=== PATIENT | female | born 1970 | race Caucasian/White ===

== ENCOUNTER 2016-11-27 17:41 | Emergency (ER) | payer OTHER, SELFPAY ==
[2016-11-27] MEDS ORDERED: Sodium Chloride 0.9% 1,000 ML ONE ×2 (18:01→18:58)
[2016-11-27] MEDS ORDERED: Acetaminophen 500 MG TAB ONE (18:02)
[2016-11-27] MEDS ORDERED: Ondansetron HCl/PF 4 MG/2 ML Vial ONE (18:02)
[2016-11-27 18:19] LABS: #Eosinphils 0.1 thou/uL (0.0-0.7); #Lymphocytes 0.8 thou/uL (1.20-3.40); #Neutrophils 10.6 thou/uL (1.40-6.50); %Basophils 0.4 % (0.0-1.0); %Eosinophils 0.4 % (0.0-10.0); %Lymphocytes 6.7 % (21.0-51.0); %Monocytes 0.4 % (0.0-10.0); %Neutrophils 92.1 % (42.0-75.0); Hemoglobin 15.2 g/dL (12.0-16.0); Mean Corpuscular HGB CONC 32.8 g/dL (32.0-36.0); Mean Corpuscular Hemoglobin 28.2 pg (27.0-31.0); Mean Corpuscular Volume 85.8 fl (81.0-99.0); Mean Platelet Volume 9.3 fL (7.4-10.4); Platelet Count 214 thou/uL (130-400); RBC Distribution Width 11.8 % (11.5-14.5); Red Blood Cell (RBC) Count 5.38 mill/uL (4.20-5.40); White Blood Cell (WBC) Count 11.5 thou/uL (4.8-10.8)
[2016-11-27 18:25] LABS: Bilirubin Negative (Negative); Blood, Urine Large (Negative); Clarity Cloudy (Clear); Glucose, Urine (Dipstick) 500 mg/dL (Negative); Leukocyte Small (Negative); Nitrite Positive (Negative); Protein, Urine (Dipstick) 30 mg/dL (Neg-Trace); Specific Gravity, Urine 1.015 (1.005-1.030); Urobilinogen 0.2 mg/dL (0.2-1.0); pH, Urine 6.5 (5.0-9.0)
[2016-11-27 18:33] LABS: Amphetamine Not Detected (NotDetected); Barbiturates Screen Not Detected (NotDetected); Benzodiazepine Screen Not Detected (NotDetected); Cocaine Metabolite Screen Not Detected (NotDetected); Methadone Not Detected (NotDetected); Methamphetamine Not Detected (NotDetected); Opiate Screen Not Detected (NotDetected); Oxycodone Screen Not Detected (NotDetected); Phencyclidine (PCP) Not Detected (NotDetected); THC/Cannabinoid Screen Not Detected (NotDetected); Tricyclic Screen Not Detected (NotDetected)
[2016-11-27 18:34] LABS: Medtox Control Line Valid? VALID (VALID)
[2016-11-27 18:40] LABS: ALT (SGPT) 15 U/L (8-55); AST (SGOT) 10 U/L (5-34); Albumin 4.3 g/dL (3.5-5.0); Alkaline Phosphatase 109 U/L (40-150); Anion Gap 18 mmol/L (10-20); BUN (Urea Nitrogen) 15 mg/dL (7.0-18.7); Bilirubin, Total 0.7 mg/dL (0.2-1.2); Calc. Creatinine Clearance 0 mL/min (70-130); Calcium 9.9 mg/dL (7.8-10.44); Carbon Dioxide 19 mmol/L (22-29); Chloride 100 mmol/L (98-107); Estimated GFR-MDRD 60; Globulin 3.2 g/dL (2.4-3.5); Glucose 436 mg/dL (70-105); Lipase 15 U/L (8-78); Protein, Total 7.5 g/dL (6.0-8.3); Sodium 133 mmol/L (136-145)
[2016-11-27 18:41] LABS: Bacteria/HPF Rare-Few HPF (None Seen); RBC/HPF 0-3 HPF (0-3); Squamous Epithelial 0-3 HPF (0-3)
--- NOTE | 2016-11-27 18:51 | CT ---
CT OF ABDOMEN AND PELVIS 11/27/16 COMPARISON: 05/11/15 HISTORY: Right sided flank pain and back pain. TECHNIQUE: Serial axial CT imaging at 5 mm intervals from lung bases through pubic symphysis without contrast. Coronal reformatted imaging obtained. FINDINGS: Lack of contrast limits assessment of the viscera, bowel, vascular structures and for lymphadenopath y. The imaged lung bases demonstrate no acute findings. No free intraperitoneal air is noted. There is a small fat containing umbilical hernia present. The liver, gallbladder, spleen, pancreas, and adrenal glands are unremarkable. A punctate nonobstructing stone is noted within the lower pole of the left kidney. There is no evide nce for obstructive uropathy on the left. There is perinephric stranding and hydronephrosis on the right with associated nephromegaly, new. Th e ureter on the right is dilated and there is periureteral fat stranding. On axial image 85, there i s a linear calcification at the level of the right ureterovesicular junction which measures 6-7 mm i n length, evidence of a distal obstructing stone. This stone measures approximately 2 mm in AP dimen steven. Limited assessment of the bowel demonstrates no evidence for inflammatory change or obstruction. Osseous structures demonstrate no acute findings. IMPRESSION: Evidence of obstructive uropathy on the right secondary to a stone within the distal right ureter at the level of the right ureterovesicular junction as detailed above. POS: [facility]
[2016-11-27] MEDS ORDERED: Ketorolac Tromethamine 30 MG/ML VIAL ONE (18:56)
[2016-11-27] MEDS ORDERED: Insulin Regular 300 UNITS/3 ML VIAL ONE (18:56)
[2016-11-27] MEDS ORDERED: Ciprofloxacin 500 MG TAB ONE (18:58)
[2016-11-27] MEDS ORDERED: Potassium Chloride 20 MEQ TAB ONE (18:58)
== END 2016-11-27 20:00 | disposition home or self-care (01) ==
LOC: NAV ERS 17:41
DX: N20.0 Calculus of kidney (principal); N39.0 Urinary tract infection, site not specified; E11.65 Type 2 diabetes mellitus with hyperglycemia; I10 Essential (primary) hypertension
CPT/HCPCS: 36415; 36416; 51701; 74176; 80053; 80306; 81003; 81015; 83690; 85025; 96361; 96374; 96375; A4353; J1815; J1885; J2270; J2405; J7050

== ENCOUNTER 2017-10-04 21:24 | Emergency (ER) | payer SELFPAY ==
[2017-10-04] MEDS ORDERED: Lidocaine 1% 20 ML MDV ONE (21:32)
[2017-10-04] MEDS ORDERED: Adacel (T-DAP) 0.5 ML VIAL ONE (21:57)
[2017-10-04] MEDS ORDERED: Sulfameth/Trimethoprim DS 800-160mg TAB ONE (22:10)
[2017-10-04] MEDS ORDERED: Amoxicillin/Potassium Clav 875 MG TAB ONE (22:10)
== END 2017-10-04 22:39 | disposition home or self-care (01) ==
LOC: NAV ERS 21:24
DX: L02.211 Cutaneous abscess of abdominal wall (principal); E11.9 Type 2 diabetes mellitus without complications; I10 Essential (primary) hypertension; Z79.899 Other long term (current) drug therapy
CPT/HCPCS: 10060; 36416; 90471; 90715; J2001

== ENCOUNTER 2017-10-05 16:52 | Emergency (ER) | payer SELFPAY | END 2017-10-05 17:17 | disposition home or self-care (01) | LOC: NAV ERS 16:52 | DX: Z48.817 Encounter for surgical aftercare following surgery on the skin and subcutaneous tissue (principal); I10 Essential (primary) hypertension; E11.9 Type 2 diabetes mellitus without complications; Z79.899 Other long term (current) drug therapy | CPT/HCPCS: 99282 ==

== ENCOUNTER 2017-12-10 15:31 | Emergency (ER) | payer SELFPAY ==
[2017-12-10] MEDS ORDERED: Ketorolac Tromethamine 60 MG/2 ML VIAL ONE (16:24)
[2017-12-10] MEDS ORDERED: Orphenadrine Citrate 60 MG/2 ML VIAL ONE (16:24)
--- NOTE | 2017-12-10 16:54 | CT ---
CT CERVICAL SPINE NONCONTRAST: 12/10/17 HISTORY: Neck injury. FINDINGS: Vertebral body heights and alignment are maintained. Cervicothoracic junction intact. No acute fractu re or dislocation. IMPRESSION: No acute osseous abnormalities are demonstrated. POS: [facility]
== END 2017-12-10 16:50 | disposition home or self-care (01) ==
LOC: NAV ERS 15:31
DX: M54.2 Cervicalgia (principal); I10 Essential (primary) hypertension; E11.9 Type 2 diabetes mellitus without complications; Z79.899 Other long term (current) drug therapy
CPT/HCPCS: 72125; 96372; J1885; J2360

== ENCOUNTER 2018-02-12 18:02 | Emergency (ER) | payer SELFPAY, OTHER ==
[~2018-02-12 18:02] MED LIST: Iopamidol 370 76% 100 ML VIAL ONE
[2018-02-12] MEDS ORDERED: Ibuprofen 200 MG TAB ONE (18:20)
[2018-02-12] MEDS ORDERED: Ondansetron HCl/PF 4 MG/2 ML Vial ONE (18:41)
[2018-02-12] MEDS ORDERED: Sodium Chloride 0.9% 1,000 ML ONE (18:41)
[2018-02-12 19:22] LABS: ALT (SGPT) 43 U/L (8-55); AST (SGOT) 28 U/L (5-34); Albumin 3.8 g/dL (3.5-5.0); Alkaline Phosphatase 99 U/L (40-150); Anion Gap 18 mmol/L (10-20); BUN (Urea Nitrogen) 9 mg/dL (7.0-18.7); Bilirubin, Total 0.5 mg/dL (0.2-1.2); Calc. Creatinine Clearance 0 mL/min (70-130); Calcium 9.4 mg/dL (7.8-10.44); Carbon Dioxide 16 mmol/L (22-29); Chloride 98 mmol/L (98-107); Estimated GFR-MDRD 65; Globulin 2.6 g/dL (2.4-3.5); Glucose 492 mg/dL (70-105); Potassium 3.9 mmol/L (3.5-5.1); Protein, Total 6.4 g/dL (6.0-8.3); Sodium 128 mmol/L (136-145)
[2018-02-12 19:23] LABS: CRP (Inflammatory) 4.91 mg/dL (= or < 0.5)
[2018-02-12 19:24] LABS: CKMB 0.1 ng/mL (0-6.6); Troponin I Less than 0.010 ng/mL (< 0.028)
[2018-02-12 19:36] LABS: Band 7 % (5-11); Hemoglobin 14.7 g/dL (12.0-16.0); Lymphocytes 21 % (21-51); MDiff Complete? YES; Mean Corpuscular HGB CONC 32.9 g/dL (32.0-36.0); Mean Corpuscular Hemoglobin 28.9 pg (27.0-31.0); Mean Corpuscular Volume 87.8 fL (78.0-98.0); Monocytes 6 % (0-10); Neutrophil 66 % (42-75); Platelet Count 171 thou/uL (130-400); RBC Distribution Width 11.4 % (11.5-14.5); Red Blood Cell (RBC) Count 5.09 mill/uL (4.20-5.40); White Blood Cell (WBC) Count 5.9 thou/uL (4.8-10.8)
[2018-02-12] MEDS ORDERED: Insulin Regular 300 UNITS/3 ML VIAL ONE (19:57)
--- NOTE | 2018-02-12 21:40 | CT ---
CT OF LUMBAR SPINE PERFORMED WITHOUT CONTRAST ENHANCEMENT: 02/12/18 HISTORY: Back pain and numbness in feet. The vertebral bodies are normal in height. Disc spaces are all well preserved. No significant periaor tic adenopathy. The visualized portions of the kidneys are unremarkable. Review of the disc levels shows no signs for any canal or foraminal stenosis. No pars defects. IMPRESSION: Unremarkable CT of the lumbar spine. POS: [facility]
--- NOTE | 2018-02-12 21:47 | CT ---
CT OF CERVICAL SPINE PERFORMED WITHOUT CONTRAST ENHANCEMENT: 02/12/18 HISTORY: Neck pain. The vertebral bodies are normal in height. Disc spaces are all fairly well preserved. The facets are in normal alignment with some minimal arthritic change. There is no evidence of canal or foraminal st enosis. There is no CT evidence for fracture. IMPRESSION: 1. No CT evidence of fracture of the cervical spine. 2. Incidental note is made of a calcified nodule in the right lobe of the thyroid. POS: [facility]
--- NOTE | 2018-02-12 22:34 | CT ---
CT ANGIO OF CHEST PERFORMED WITH INTRAVENOUS CONTRAST ENHANCEMENT WITH 3D RECONSTRUCTIONS: 02/12/18 HISTORY: Shortness of breath, chest pain. There is subsegmental atelectatic changes in the lung bases. No infi ltrative process. The thoracic aorta is normal in caliber. No mediastinal or hilar adenopathy noted. There is fairly good pulmonary artery opacification, there is no CT evidence for pulmonary embolus. The visualized liver parenchyma shows no focal abnormalities. The spleen is slightly enlarged at 13 c m. IMPRESSION: No CT evidence for pulmonary embolus. Suggestion of some mild splenomegaly. POS: [facility]
== END 2018-02-12 23:28 | disposition home or self-care (01) ==
LOC: NAV ERS 18:02
DX: E11.65 Type 2 diabetes mellitus with hyperglycemia (principal); B34.9 Viral infection, unspecified; E86.9 Volume depletion, unspecified; I10 Essential (primary) hypertension
CPT/HCPCS: 36416; 71275; 72125; 72131; 80053; 82553; 83605; 84484; 85025; 85379; 86140; 87081; 87430; 87804; 93005; 96374; 96375; 96376; J1815; J2270; J2405; J7050

== ENCOUNTER 2018-08-09 13:45 | Outpatient (CLI) | payer OTHER, SELFPAY ==
--- NOTE | 2018-08-09 14:36 | RAD ---
LUMBAR SPINE 3 VIEWS: HISTORY: Back pain, disability evaluation. COMPARISON: 11/21/2015. FINDINGS: The disk spaces appear adequately preserved. There is some very mild facet arthrosis. No fracture o r dislocation or malalignment. IMPRESSION: Mild lumbar spondylosis. No significant acute process. Stable from prior study. POS: OFF
== END 2018-08-09 13:46 | disposition home or self-care (01) ==
LOC: NAV RAD 13:45
PROVIDERS: ATTEND Family Medicine
DX: Z02.71 Encounter for disability determination (principal); M54.5 Low back pain; M47.816 Spondylosis without myelopathy or radiculopathy, lumbar region
CPT/HCPCS: 72100

== ENCOUNTER 2018-08-09 13:59 | Outpatient (CLI) | payer OTHER ==
--- NOTE | 2018-08-09 14:18 | RAD ---
XR Ankle Rt 3 View STANDARD History: [Injury. Jumped out of a window.] Comparison: None. Findings: No acute fracture or malalignment. Soft tissues are unremarkable. Impression: No acute abnormality.
--- NOTE | 2018-08-09 14:41 | RAD ---
RIGHT TIBIA AND FIBULA 2 VIEWS: HISTORY: Right leg pain following an injury after jumping out a window. FINDINGS AND IMPRESSION: No fracture, dislocation, or other significant acute osseous abnormality. POS: OFF
== END 2018-08-09 14:00 | disposition home or self-care (01) ==
LOC: NAV RAD 13:59
PROVIDERS: ATTEND Family Medicine
DX: M25.571 Pain in right ankle and joints of right foot (principal); M79.604 Pain in right leg

== ENCOUNTER 2019-03-19 16:46 | Emergency (ER) | payer OTHER, SELFPAY ==
[2019-03-19] MEDS ORDERED: Ketorolac Tromethamine 60 MG/2 ML VIAL ONE (17:27)
[2019-03-19] MEDS ORDERED: Amlodipine 5 MG TAB ONE (17:29)
== END 2019-03-19 17:48 | disposition home or self-care (01) ==
LOC: NAV ERS 16:46
DX: M54.41 Lumbago with sciatica, right side (principal); M54.42 Lumbago with sciatica, left side; I10 Essential (primary) hypertension; E11.9 Type 2 diabetes mellitus without complications
CPT/HCPCS: 96372; 99283; J1885

== ENCOUNTER 2022-03-12 15:41 | Emergency (ER) | payer OTHER ==
[2022-03-12] MEDS ORDERED: Aspirin Chewable 81 MG TAB ONE (16:22)
[2022-03-12] MEDS ORDERED: Nitroglycerin 0.4 MG TAB (25 Tab Bottle) ONE (16:30)
[2022-03-12 16:38] LABS: #Basophils 0.1 thou/uL (0.0-0.2); #Eosinphils 0.1 thou/uL (0.0-0.7); #Lymphocytes 2.3 thou/uL (1.20-3.40); #Monocytes 0.4 thou/uL (0.11-0.59); #Neutrophils 3.4 thou/uL (1.40-6.50); %Eosinophils 1.7 % (0.0-10.0); %Monocytes 6.7 % (0.0-10.0); %Neutrophils 54.6 % (42.0-75.0); Hemoglobin 14.9 g/dL (12.0-16.0); Mean Corpuscular Hemoglobin 29.4 pg (27.0-31.0); Mean Corpuscular Volume 92.1 fl (78.0-98.0); Mean Platelet Volume 9.3 fL (7.4-10.4); Platelet Count 203 10x3/uL (130-400); RBC Distribution Width 12.8 % (11.5-14.5); Red Blood Cell (RBC) Count 5.07 mill/uL (4.20-5.40); White Blood Cell (WBC) Count 6.3 10x3/uL (4.8-10.8)
[2022-03-12] MEDS ORDERED: Acetaminophen 500 MG TAB ONE (16:50)
[2022-03-12 16:55] LABS: ALT (SGPT) 111 U/L (8-55); AST (SGOT) 30 U/L (5-34); Albumin 4.1 g/dL (3.5-5.0); Alkaline Phosphatase 116 U/L (40-110); Anion Gap 15 mmol/L (10-20); BUN (Urea Nitrogen) 22 mg/dL (7.0-18.7); Bilirubin, Total 0.2 mg/dL (0.2-1.2); Calc. Creatinine Clearance 0 mL/min (70-130); Carbon Dioxide 25 mmol/L (22-29); Chloride 107 mmol/L (98-107); Estimated GFR 71; Glucose 121 mg/dL (70-105); Potassium 3.9 mmol/L (3.5-5.1); Protein, Total 7.1 g/dL (6.0-8.3); Sodium 143 mmol/L (136-145)
[2022-03-12] MEDS ORDERED: Morphine 4 MG/ML VIAL ONE (17:30)
[2022-03-12] MEDS ORDERED: Ondansetron PF 4 MG/2 ML Vial ONE ×2 (17:30→19:01)
[2022-03-12 19:36] LABS: Troponin I Less than 0.010 ng/mL (< 0.028)
[2022-03-12 20:04] LABS: SARS-CoV-2 NAA Rapid Test DETECTED (NotDetected)
== END 2022-03-12 20:38 | disposition short-term general hospital (02) ==
LOC: NAV ERS 15:41
DX: S90.01XA Contusion of right ankle, initial encounter (principal); J98.11 Atelectasis; R93.1 Abnormal findings on diagnostic imaging of heart and coronary circulation; I10 Essential (primary) hypertension; E11.9 Type 2 diabetes mellitus without complications; Z20.822 Contact with and (suspected) exposure to COVID-19; I25.10 Atherosclerotic heart disease of native coronary artery without angina pectoris; Z79.899 Other long term (current) drug therapy; Z79.82 Long term (current) use of aspirin; Z79.4 Long term (current) use of insulin; W22.8XXA Striking against or struck by other objects, initial encounter
CPT/HCPCS: 71045; 80053; 84484; 85025; 85379; 87804; 93005; 94760; 96374; 96375; 96376; J2270; J2405; U0002

== ENCOUNTER 2022-04-17 18:42 | Emergency (ER) | payer OTHER ==
[2022-04-17 19:32] LABS: #Basophils 0.1 thou/uL (0.0-0.2); #Eosinphils 0.2 thou/uL (0.0-0.7); #Lymphocytes 2.5 thou/uL (1.20-3.40); #Monocytes 0.4 thou/uL (0.11-0.59); #Neutrophils 4.7 thou/uL (1.40-6.50); %Basophils 1.4 % (0.0-1.0); %Lymphocytes 31.1 % (21.0-51.0); %Monocytes 5.6 % (0.0-10.0); Hemoglobin 14.7 g/dL (12.0-16.0); Mean Corpuscular HGB CONC 32.3 g/dL (32.0-36.0); Mean Corpuscular Hemoglobin 29.5 pg (27.0-31.0); Mean Corpuscular Volume 91.3 fl (78.0-98.0); Mean Platelet Volume 10.4 fL (7.4-10.4); Platelet Count 223 10x3/uL (130-400); RBC Distribution Width 12.2 % (11.5-14.5); Red Blood Cell (RBC) Count 4.99 mill/uL (4.20-5.40); White Blood Cell (WBC) Count 7.9 10x3/uL (4.8-10.8)
[2022-04-17 19:47] LABS: ALT (SGPT) 24 U/L (8-55); AST (SGOT) 13 U/L (5-34); Albumin 4.6 g/dL (3.5-5.0); Alkaline Phosphatase 116 U/L (40-110); Anion Gap 15 mmol/L (10-20); BUN (Urea Nitrogen) 20 mg/dL (7.0-18.7); Bilirubin, Total 0.2 mg/dL (0.2-1.2); Calc. Creatinine Clearance 0 mL/min (70-130); Calcium 10.6 mg/dL (7.8-10.44); Carbon Dioxide 27 mmol/L (22-29); Chloride 104 mmol/L (98-107); Estimated GFR 59; Globulin 2.3 g/dL (2.4-3.5); Glucose 205 mg/dL (70-105); Lipase 49 U/L (8-78); Potassium 4.1 mmol/L (3.5-5.1); Protein, Total 6.9 g/dL (6.0-8.3); Sodium 142 mmol/L (136-145)
[2022-04-17] MEDS ORDERED: Nitroglycerin 2% Ointment 1 INCH/1 GM Packet ONE (21:50)
[2022-04-17] MEDS ORDERED: Aspirin Chewable 81 MG TAB ONE (21:51)
== END 2022-04-17 23:34 | disposition short-term general hospital (02) ==
LOC: NAV ERS 18:42
DX: R07.89 Other chest pain (principal); I10 Essential (primary) hypertension; E11.9 Type 2 diabetes mellitus without complications; I25.10 Atherosclerotic heart disease of native coronary artery without angina pectoris; Z79.899 Other long term (current) drug therapy
CPT/HCPCS: 71045; 71275; 80053; 83690; 84484; 85025; 93005; Q9967

== ENCOUNTER 2022-09-28 17:21 | Emergency (ER) | payer OTHER ==
[2022-09-28] MEDS ORDERED: Nitroglycerin 0.4 MG TAB (25 Tab Bottle) ONE (18:03)
[2022-09-28] MEDS ORDERED: Sodium Chloride 0.9% 1,000 ML ONE (18:03)
[2022-09-28] MEDS ORDERED: Aspirin Chewable 81 MG TAB ONE (18:03)
[2022-09-28] MEDS ORDERED: Pantoprazole 40 MG VIAL ONE (18:03)
[2022-09-28 18:07] LABS: #Basophils 0.1 thou/uL (0.0-0.2); #Eosinphils 0.2 thou/uL (0.0-0.7); #Lymphocytes 2.3 thou/uL (1.20-3.40); #Monocytes 0.7 thou/uL (0.11-0.59); #Neutrophils 7.3 thou/uL (1.40-6.50); %Eosinophils 1.5 % (0.0-10.0); %Lymphocytes 22.2 % (21.0-51.0); %Monocytes 6.6 % (0.0-10.0); %Neutrophils 68.8 % (42.0-75.0); Hemoglobin 13.3 g/dL (12.0-16.0); Mean Corpuscular HGB CONC 31.8 g/dL (32.0-36.0); Mean Corpuscular Hemoglobin 28.2 pg (27.0-31.0); Mean Corpuscular Volume 88.7 fl (78.0-98.0); Mean Platelet Volume 8.5 fL (7.4-10.4); Platelet Count 223 10x3/uL (130-400); RBC Distribution Width 12.4 % (11.5-14.5); Red Blood Cell (RBC) Count 4.73 mill/uL (4.20-5.40); White Blood Cell (WBC) Count 10.5 10x3/uL (4.8-10.8)
[2022-09-28 18:22] LABS: ALT (SGPT) 124 U/L (8-55); AST (SGOT) 69 U/L (5-34); Albumin 4.1 g/dL (3.5-5.0); Alkaline Phosphatase 163 U/L (40-110); Anion Gap 17 mmol/L (10-20); BUN (Urea Nitrogen) 16 mg/dL (9.8-20.1); Bilirubin, Total 0.4 mg/dL (0.2-1.2); Calc. Creatinine Clearance 0 mL/min (70-130); Calcium 9.5 mg/dL (7.8-10.44); Carbon Dioxide 23 mmol/L (22-29); Chloride 107 mmol/L (98-107); Estimated GFR 92; Globulin 3.3 g/dL (2.4-3.5); Potassium 3.5 mmol/L (3.5-5.1); Protein, Total 7.4 g/dL (6.0-8.3); Sodium 143 mmol/L (136-145)
[2022-09-28 18:53] LABS: Glucose 51 mg/dL (70-105)
[2022-09-28] MEDS ORDERED: Morphine 2 MG/ML VIAL ONE ×2 (19:00→19:45)
[2022-09-28] MEDS ORDERED: Dextrose 5 % And 0.9 % NaCl 1,000 ML ONE (19:00)
== END 2022-09-28 20:48 | disposition short-term general hospital (02) ==
LOC: NAV ERS 17:21
DX: R07.89 Other chest pain (principal); R79.89 Other specified abnormal findings of blood chemistry; R93.1 Abnormal findings on diagnostic imaging of heart and coronary circulation; I10 Essential (primary) hypertension; E11.649 Type 2 diabetes mellitus with hypoglycemia without coma; Z79.899 Other long term (current) drug therapy; Z79.82 Long term (current) use of aspirin
CPT/HCPCS: 36415; 36416; 71045; 80053; 83690; 83880; 84443; 84484; 85025; 85379; 93005; 94760; 96361; 96374; 96375; 96376; C9113; J2272; J7042; J7050

== ENCOUNTER 2023-10-20 10:51 | Emergency (ER) | payer OTHER ==
[2023-10-20] MEDS ORDERED: Sulfameth/Trimethoprim DS 800-160mg TAB ONE (12:14)
[2023-10-20] MEDS ORDERED: Cephalexin 250 MG CAP ONE (12:14)
== END 2023-10-20 12:20 | disposition home or self-care (01) ==
LOC: NAV ERS 10:51
DX: L03.114 Cellulitis of left upper limb (principal); I10 Essential (primary) hypertension; E11.9 Type 2 diabetes mellitus without complications; Z79.82 Long term (current) use of aspirin; Z79.899 Other long term (current) drug therapy; Z79.4 Long term (current) use of insulin
CPT/HCPCS: 99282

== ENCOUNTER 2024-05-19 14:52 | Emergency (ER) | payer OTHER ==
[2024-05-19] MEDS ORDERED: Ketorolac Tromethamine 60 MG/2 ML VIAL ONE (15:31)
[2024-05-19] MEDS ORDERED: Morphine 4 MG/ML VIAL ONE (15:38)
[2024-05-19] MEDS ORDERED: Morphine 2 MG/ML VIAL ONE (15:38)
[2024-05-19 17:37] LABS: Bilirubin Negative (Negative); Blood, Urine Trace (Negative); Clarity Clear (Clear); Glucose, Urine (Dipstick) >=1000 mg/dL (Negative); Ketone, Urine 40 mg/dL (Negative); Leukocyte Negative (Negative); Nitrite Positive (Negative); Protein, Urine (Dipstick) Trace mg/dL (Neg-Trace); Urobilinogen 0.2 mg/dL (Less than 2)
[2024-05-19 17:45] LABS: Amphetamine Not Detected (NotDetected); Barbiturates Screen Not Detected (NotDetected); Benzodiazepine Screen Not Detected (NotDetected); Cocaine Metabolite Screen Not Detected (NotDetected); Methadone Not Detected (NotDetected); Methamphetamine Not Detected (NotDetected); Opiate Screen Detected (NotDetected); Oxycodone Screen Not Detected (NotDetected); Phencyclidine (PCP) Not Detected (NotDetected); THC/Cannabinoid Screen Not Detected (NotDetected); Tricyclic Screen Not Detected (NotDetected)
[2024-05-19 17:47] LABS: Bacteria/HPF 3+ HPF (None Seen); CAUTI Indications for Culture Alt mental st,lethar; RBC/HPF 0-3 HPF (0-3); Transitional Epithelial 0-3 HPF (None Seen); WBC/HPF Greater than 50 HPF (0-3); White Blood Cell Cast 0-3 LPF (None Seen)
[2024-05-19 17:49] LABS: Urine Culture Reflex Yes Yes
== END 2024-05-19 18:26 | disposition home or self-care (01) ==
LOC: NAV ERS 14:52
DX: M25.562 Pain in left knee (principal); N39.0 Urinary tract infection, site not specified; I25.2 Old myocardial infarction; I10 Essential (primary) hypertension; E11.9 Type 2 diabetes mellitus without complications; Z95.5 Presence of coronary angioplasty implant and graft; W18.30XA Fall on same level, unspecified, initial encounter
CPT/HCPCS: 80306; 81001; 87077; 87086; 87186; 96372; 99283; J1885; J2270; J2272